=== PATIENT | female | born 1980 | race Caucasian/White ===

== ENCOUNTER 2017-05-30 19:25 | Emergency (ER) | payer OTHER ==
[~2017-05-30] VITALS: Ht 152.4 cm; Wt 52.3 kg
[~2017-05-30 19:25] MED LIST: DOXYCYCLINE HY100 MG PO; ENDOCET 5-3251 EACH PO; FERROUS GLUCON324 MG PO; FLAGYL500 MG PO; FLINTSTONES COM18 MG PO; Feosol PO; IBUPROFEN800 MG PO; Motrin PO; TYLENOL WITH C1 EACH PO
[2017-05-30 20:43] LABS: MCH 29.9 PG (29.0-34.0); MCHC 33.8 G/DL (30.0-36.0); MCV 88.5 FL (83-99); MEAN PLAT.VOLUME 13.1 uM^3 (9.5-12.4); PLATELET COUNT 139 K/uL (156-360); RBC DIS.WIDTH-CV 12.7 % (11.8-14.6); RBC DIS.WIDTH-SD 41.2 % (39-53); RED BLOOD COUNT 4.52 M/uL (3.80-5.20); WHITE BLOOD COUNT 9.4 K/uL (4.1-10.2)
[2017-05-30 21:09] LABS: CHLORIDE 106 mEq/L (99-109); POTASSIUM 4.2 mEq/L (3.7-5.4); SODIUM 139 mEq/L (136-147)
[2017-05-30 21:11] LABS: GLUCOSE 111 mg/dL (70-99)
[2017-05-30 21:12] LABS: ANION GAP 14 MEQ/L (2-14)
[2017-05-30 21:13] LABS: TOTAL BILIRUBIN 1.3 mg/dL (0.0-1.0)
[2017-05-30 21:14] LABS: ALKALINE PHOSPHATASE 92 IU/L (3-129)
[2017-05-30 21:15] LABS: GFR ESTIMATE (CALCULATED) > 59 mL/min/
[2017-05-30 21:16] LABS: UREA NITROGEN (BUN) 14 mg/dL (9-23)
[2017-05-30 21:23] LABS: QUANTITATIVE HCG < 4.0 MIU/ML
[2017-05-30 21:24] LABS: LIPASE 16 U/L (1.0-51.0)
[2017-05-30 21:56] LABS: ADD MIUA? YES; BILIRUBIN NEGATIVE; BLOOD NEGATIVE; COLOR YELLOW ((YELLOW)); GLUCOSE (STRIP) NEGATIVE; KETONES 80; LEUKOCYTES NEGATIVE; NITRITE NEGATIVE; PROTEIN (STRIP) 30; SPECIFIC GRAVITY 1.023 (1.000-1.030); UROBILINOGEN 0.2 MG/DL (0.2-1.0)
[2017-05-30 21:59] LABS: BACTERIA NONE SEEN /HPF; EPITHELIAL CELLS RARE /HPF; MUCUS TRACE /LPF; RED BLOOD CELLS 0-5 /HPF (0-5); UCUL ADDED? NO; WHITE BLOOD CELLS 0-5 /HPF (0-5)
[2017-05-30] MEDS ORDERED: ZOFRAN4 MG PO (22:54)
[2017-05-30] MEDS ORDERED: FIORICET 50-301 EACH PO (22:54)
[2017-05-30 23:04] VITALS: BP 121/91
== END 2017-05-30 23:05 | disposition home or self-care (01) ==
LOC: EME 19:25
DX: R51 Headache (principal); R10.11 Right upper quadrant pain; Z91.81 History of falling; K21.9 Gastro-esophageal reflux disease without esophagitis; Z88.0 Allergy status to penicillin
CPT/HCPCS: 70450; 76705; 80053; 81003; 83690; 84702; 85027; 99281; 99284